=== PATIENT | female | born 1985 | race Caucasian/White ===

== ENCOUNTER 2016-09-27 17:03 | Emergency (ER) | payer OTHER ==
[2016-09-27 19:17] VITALS: BP 123/74
--- NOTE | 2016-09-27 19:29 | UC ---
Throat Pain/Nasal [place] HPI - HPI Summary HPI Summary: 31 yo female with a 2 day hx of right earache/sore throat and sinus congestion/ pressure no cp or sob no n/v/d - History of Current Complaint Chief Complaint: UCGeneralIllness Stated Complaint: SINUS COMPLAINT Time Seen by Provider: 09/27/16 19:05 Hx Obtained From: Patient Hx Last Menstrual Period: 09/24/16 Onset/Duration: Gradual Onset, Lasting Days Severity: Mild Pain Intensity: 4 Pain Scale Used: 0-10 Numeric Cough: None Associated Signs & Symptoms: Positive: Sinus Discomfort, Nasal Discharge - Allergies/Home Medications Allergies/Adverse Reactions: Allergies Allergy/AdvReac Type Severity Reaction Status Date / Time Amoxicillin Allergy Palpitation Verified 09/27/16 19:04 s Clindamycin Allergy Vomiting Verified 09/27/16 19:04 Erythromycin Allergy Palpitation Verified 09/27/16 19:04 s Penicillins [PCN] Allergy Unknown Verified 09/27/16 19:04 Reaction Details Home Medications: Home Medications diPHENhydraMINE PO* [Benadryl PO*] 25 mg PO BEDTIME PRN 09/27/16 [History Confirmed 09/27/16] PMH/Surg Hx/FS Hx/Imm Hx Previously Healthy: Yes - Surgical History Surgical History: Yes Surgery Procedure, Year, and Place: right pinky - Family History Known Family History: Positive: Hypertension, Diabetes - Social History Alcohol Use: Rare Substance Use Type: None Smoking Status (MU): Never Smoked Tobacco Amount Used/How Often: ~ 1/2 ppd Length of Time of Smoking/Using Tobacco: started ~ age 17 When Did the Patient Quit Smoking/Using Tobacco: quit ~ November 2014 Review of Systems Constitutional: Negative Skin: Negative Eyes: Negative ENT: Sore Throat, Ear Ache, Nasal Discharge Respiratory: Negative Cardiovascular: Negative Gastrointestinal: Negative Genitourinary: Negative Motor: Negative Neurovascular: Negative Musculoskeletal: Negative Neurological: Negative Psychological: Negative All Other Systems Reviewed And Are Negative: Yes Physical Exam Triage Information Reviewed: Yes Appearance: Well-Appearing, No Pain Distress, Well-Nourished Vital Signs: Initial Vital Signs Temp 98.6 F 09/27/16 19:06 Pulse 81 09/27/16 19:06 Resp 16 09/27/16 19:06 BP 123/74 09/27/16 19:06 Pulse Ox 100 09/27/16 19:06 Vital Signs Reviewed: Yes Eyes: Positive: Conjunctiva Clear ENT: Positive: Hearing grossly normal, Pharynx normal, Nasal drainage, TMs normal, Tonsillar swelling, Tonsillar exudate, Other: - tender both max sinuses. Negative: Pharyngeal erythema, Nasal congestion Dental: Negative: Gross Decay/Caries @, Dental Fracture @, Abscess @ Neck: Positive: Supple, Nontender, Enlarged Nodes @ - ant cervical Respiratory: Positive: Lungs clear, Normal breath sounds, No respiratory distress Cardiovascular: Positive: RRR, No Murmur Musculoskeletal: Positive: Strength Intact, ROM Intact, No Edema Neurological Exam: Normal Neurological: Positive: Alert Psychological Exam: Normal Skin: Negative: rashes, breakdown Throat Pain/Nasal Course/Dx - Differential Dx/Diagnosis Provider Diagnoses: acute exudative tonsillitis. ?sinusitis Discharge - Discharge Plan Condition: Stable Disposition: HOME Prescriptions: Cefuroxime Axetil [Ceftin 250 MG] 250 mg PO BID #20 tab Patient Education Materials: Sinusitis (ED), Tonsillitis (ED) Forms: *Work Release Referrals: No Primary Care Phys,NOPCP [Primary Care Provider] - Additional Instructions: rest fluids tylenol or advil if needed
== END 2016-09-27 19:35 | disposition home or self-care (01) ==
LOC: UCCORT 17:03
DX: J03.90 Acute tonsillitis, unspecified (principal); R09.81 Nasal congestion; H92.01 Otalgia, right ear; Z88.1 Allergy status to other antibiotic agents; Z88.0 Allergy status to penicillin; Z87.891 Personal history of nicotine dependence
CPT/HCPCS: 99212; G0463

== ENCOUNTER 2016-11-04 13:10 | Emergency (ER) | payer SELFPAY ==
[2016-11-04 13:26] VITALS: BP 112/71
--- NOTE | 2016-11-04 14:29 | RAD ---
Indication: Right foot injury. 3 views of the foot demonstrates no fracture. No other bone or joint abnormality is identified. IMPRESSION: No fracture of the right foot is noted.
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
== END 2016-11-04 15:12 | disposition home or self-care (01) ==
LOC: UCCORT 13:10
DX: S97.81XA Crushing injury of right foot, initial encounter (principal); S90.31XA Contusion of right foot, initial encounter; W20.8XXA Other cause of strike by thrown, projected or falling object, initial encounter; Y93.89 Activity, other specified; Y92.9 Unspecified place or not applicable; Y99.0 Civilian activity done for income or pay; Z88.1 Allergy status to other antibiotic agents; Z88.0 Allergy status to penicillin; Z87.891 Personal history of nicotine dependence
CPT/HCPCS: 99211; G0463

== ENCOUNTER 2017-12-31 16:56 | Emergency (ER) | payer OTHER ==
[2017-12-31 17:25] VITALS: BP 112/71
[2017-12-31] MEDS ORDERED: Tetan/Diph/Pertus SYR(Tdap)* 0.5 ML SYR(BOOSTRIX) use SYR IM ONE (17:43)
--- NOTE | 2017-12-31 17:47 | UC ---
Skin Complaint HPI - HPI Summary HPI Summary: The pt presents with . on sat, pt was in garden. Pt noted a tick to left inner thigh. Pt removed by making a circular motion around tick with soap. Pt states tick removed intact. Pt with erythema surrounding the attached site. Pt concerned for lymes. Pt denies fever, chills. no analgesia taken. Pt states slight itching at the site. Pt unknown last tetanus No possibility of pt's medications reviewed this visit - History of Current Complaint Chief Complaint: UCSkin Time Seen by Provider: 12/31/17 17:18 Stated Complaint: TICK BITE Hx Obtained From: Patient Hx Last Menstrual Period: 12/12/17 Onset/Duration: Gradual Onset Skin Exposure Onset/Duration: Days Ago Onset Severity: Mild Current Severity: Moderate Pain Intensity: 7 Pain Scale Used: 0-10 Numeric Location: Discrete - Allergy/Home Medications Allergies/Adverse Reactions: Allergies Allergy/AdvReac Type Severity Reaction Status Date / Time amoxicillin Allergy Palpitation Verified 12/31/17 17:19 s clindamycin Allergy Vomiting Verified 12/31/17 17:19 erythromycin base Allergy Palpitation Verified 12/31/17 17:19 s Penicillins Allergy Unknown Verified 12/31/17 17:19 Reaction Details Review of Systems Constitutional: Negative Skin: Rash All Other Systems Reviewed And Are Negative: Yes PMH/Surg Hx/FS Hx/Imm Hx Previously Healthy: Yes - Surgical History Surgical History: Yes Surgery Procedure, Year, and Place: right pinky - Family History Known Family History: Positive: None, Hypertension, Diabetes - Social History Occupation: Employed Full-time Lives: With Family Alcohol Use: Rare Substance Use Type: None Smoking Status (MU): Former Smoker Amount Used/How Often: ~ 1/2 ppd Length of Time of Smoking/Using Tobacco: started ~ age 17 When Did the Patient Quit Smoking/Using Tobacco: quit ~ November 2014 Physical Exam Triage Information Reviewed: Yes Completion Of Physical Exam Limited Due To: Altered Mental Status Appearance: Well-Appearing, No Pain Distress, Well-Nourished Vital Signs: Initial Vital Signs Temp 99.2 F 12/31/17 17:19 Pulse 88 12/31/17 17:19 Resp 14 12/31/17 17:19 BP 112/71 12/31/17 17:19 Pulse Ox 98 12/31/17 17:19 Vital Signs Reviewed: Yes Eye Exam: Normal ENT: Positive: Hearing grossly normal Dental Exam: Normal Neck: Positive: Supple Respiratory: Positive: No respiratory distress, No accessory muscle use Cardiovascular: Positive: Brisk Capillary Refill Musculoskeletal Exam: Normal Musculoskeletal: Positive: Strength Intact, Other: - ambulatory without difficultuy or weakness Neurological Exam: Normal Neurological: Positive: Alert, Muscle Tone Normal Psychological Exam: Normal Psychological: Positive: Normal Response To Family Skin: Positive: Other - left medial thigh -pt with 2mm wound from removal of tick. Pt with circumferential erythema, flat, warm no induration,fluctuance no drainage, odor mild discomfort with palpation Course/Dx - Course Course Of Treatment: Pt removed a tick from left inner thigh. Pt with circumferential erythema with surrounding puncture wound from tick removal. Suspect local reaction - no concern for cellulitis. Will update tdap. Doxy x 1 dose - d/w pt and CD recommendation. reviewed wound care. heat. steroid ointment. return precautions. pt without PCP - referral given. pt comfortable and in agreement with plan - Diagnoses Provider Diagnoses: tdap booster. tick bite - local reaction Discharge - Sign-Out/Discharge Documenting (check all that apply): Discharge/Admit/Transfer - Discharge Plan Condition: Stable Disposition: HOME Prescriptions: Betamethasone Dip 0.05% ON(NF) [Betamethasone Dipr 0.05% OINT(NF)] 1 applic .SEE ORDER BID #1 applic DOXYcycline CAP(*) [DOXYcycline 100MG CAP(*)] 200 mg PO DAILY #2 cap Patient Education Materials: Diphtheria/Acellular Pertussis/Tetanus Booster Vaccine (By injection), Tick Bite (ED) Referrals: [facility] [place] [facility] [Outside] No Primary Care Phys,NOPCP [Primary Care Provider] - Additional Instructions: - You were given a tetanus vaccination today. Your arm will likely be sore over the next 1-2 days. This is normal. - Okay to take tylenol every 6 hours for pain - The provider that evaluated you today thinks the reddness is a local reaction to the tick. The doctor does not think there is infection to the area. This is not the rash associated with lyme disease. The following are recommendations for your: - okay to apply warm soaks to your wound 2-3 times a day - apply steroid ointment 2 times a day - you have been given the 1 time dose of antibiotics to prevent lyme disease - monitor your wound carefully for the development of skin infection - this includes increased reddness, red streaking up your leg toward your groin, drainage, fever or ANY other concerns - if you have any concerns - contact your doctor or return - Billing Disposition and Condition Condition: STABLE Disposition: HOME
== END 2017-12-31 18:00 | disposition home or self-care (01) ==
LOC: UCCORT 16:56
DX: S70.362A Insect bite (nonvenomous), left thigh, initial encounter (principal); W57.XXXA Bitten or stung by nonvenomous insect and other nonvenomous arthropods, initial encounter; Y92.9 Unspecified place or not applicable; Z87.891 Personal history of nicotine dependence
CPT/HCPCS: 90471; 90715; 99212; G0463

== ENCOUNTER 2018-05-18 12:10 | Emergency (ER) | payer OTHER ==
[2018-05-18 12:52] VITALS: BP 102/67
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
== END 2018-05-18 14:20 | disposition home or self-care (01) ==
LOC: UCCORT 12:10
DX: L08.9 Local infection of the skin and subcutaneous tissue, unspecified (principal); B95.62 Methicillin resistant Staphylococcus aureus infection as the cause of diseases classified elsewhere; B96.89 Other specified bacterial agents as the cause of diseases classified elsewhere; Z88.0 Allergy status to penicillin; Z88.1 Allergy status to other antibiotic agents; F17.210 Nicotine dependence, cigarettes, uncomplicated
CPT/HCPCS: 87070; 87077; 87186; 87205; 87640; 87641; 99212; G0463

== ENCOUNTER 2019-05-10 14:13 | Emergency (ER) | payer OTHER ==
[2019-05-10 15:09] VITALS: BP 109/70
--- NOTE | 2019-05-10 15:24 | UC ---
Skin Complaint HPI - HPI Summary HPI Summary: Pt presents with c/o sudden onset of painful "lump" under left upper arm lateral aspect. Pt states she has a hx of frequent MRSA infections. Pt denies drainage, red streaking, fever, or chills. Pt's daughter was dx with MRSA infection last week - History of Current Complaint Chief Complaint: UCSkin Time Seen by Provider: 05/10/19 15:02 Stated Complaint: SKIN COMPLAINT Hx Obtained From: Patient Hx Last Menstrual Period: 04/13/19 ?: No Onset/Duration: Sudden Onset Skin Exposure Onset/Duration: Days Ago Timing: Constant Onset Severity: Moderate Current Severity: Moderate Pain Intensity: 0 Location: Discrete Character: Swelling, Pain, Redness Aggravating Factor(s): Touch Alleviating Factor(s): Nothing Associated Signs & Symptoms: Positive: Tenderness - Allergy/Home Medications Allergies/Adverse Reactions: Allergies Allergy/AdvReac Type Severity Reaction Status Date / Time amoxicillin Allergy Palpitation Verified 05/10/19 15:10 s clindamycin Allergy Vomiting Verified 05/10/19 15:10 erythromycin base Allergy Palpitation Verified 05/10/19 15:10 s Penicillins Allergy Unknown Verified 05/10/19 15:10 Reaction Details PMH/Surg Hx/FS Hx/Imm Hx Previously Healthy: Yes - hx of mrsa - Surgical History Surgical History: Yes Surgery Procedure, Year, and Place: Right Fifth Finger Tendon Repair, ~2012 - Family History Known Family History: Positive: Hypertension, Diabetes - Social History Occupation: Employed Full-time Lives: With Family Alcohol Use: Rare Substance Use Type: None Smoking Status (MU): Former Smoker Amount Used/How Often: ~ 1/2 ppd Length of Time of Smoking/Using Tobacco: 1/2 PPD x 13 Years Have You Smoked in the Last Year: No When Did the Patient Quit Smoking/Using Tobacco: 2014 - Immunization History Most Recent Tetanus Shot: 12/31/17 Vaccination Up to Date: Yes Review of Systems All Other Systems Reviewed And Are Negative: Yes Constitutional: Positive: Negative Skin: Positive: Other - erythema, firm, non flucuant lump Eyes: Positive: Negative ENT: Positive: Negative Respiratory: Positive: Negative Cardiovascular: Positive: Negative Gastrointestinal: Positive: Negative Genitourinary: Positive: Negative Motor: Positive: Negative Neurovascular: Positive: Negative Musculoskeletal: Positive: Negative Neurological: Positive: Negative Psychological: Positive: Negative Is Patient Immunocompromised?: No Physical Exam Triage Information Reviewed: Yes Appearance: Well-Appearing Vital Signs: Initial Vital Signs Temp 99.4 F 05/10/19 15:03 Pulse 91 05/10/19 15:03 Resp 18 05/10/19 15:03 BP 109/70 05/10/19 15:03 Pulse Ox 100 05/10/19 15:03 Vital Signs Reviewed: Yes Eye Exam: Normal ENT Exam: Normal ENT: Positive: Hearing grossly normal Dental Exam: Normal Respiratory: Positive: No respiratory distress Musculoskeletal Exam: Normal Neurological Exam: Normal Psychological Exam: Normal Skin Exam: Other - large marble size firm lump left lateral posterior upper arm no drainage, Course/Dx - Course Course Of Treatment: Unable to drain wound with pressure - Differential Diagnoses - Skin Complaint Differential Diagnoses: Abscess, MRSA - Diagnoses Provider Diagnosis: Abscess Discharge ED - Sign-Out/Discharge Documenting (check all that apply): Patient Departure All imaging exams completed and their final reports reviewed: No Studies - Discharge Plan Condition: Stable Disposition: HOME Prescriptions: Mupirocin 2% OINT* [Bactroban 2 % Oint*] 1 applic TOPICAL BEDTIME #1 tube Sulfamethox/Trimethoprim DS* [Bactrim DS 800/160 TAB*] 1 tab PO Q12H #20 tab Patient Education Materials: Abscess (ED) Referrals: [facility] [place] [facility] [Outside] - If Needed No Primary Care Phys,NOPCP [Primary Care Provider] - - Billing Disposition and Condition Condition: STABLE Disposition: Home
== END 2019-05-10 15:32 | disposition home or self-care (01) ==
LOC: UCCORT 14:13
DX: L02.414 Cutaneous abscess of left upper limb (principal); Z88.0 Allergy status to penicillin; Z88.1 Allergy status to other antibiotic agents; Z87.891 Personal history of nicotine dependence; Z86.14 Personal history of Methicillin resistant Staphylococcus aureus infection
CPT/HCPCS: 99212; G0463

== ENCOUNTER 2021-11-10 09:00 | Inpatient (IN) ==
[2021-11-10 09:45] LABS: ABS Basophils 0.1 10^3/ul (0-0.2); ABS Eosinophils 0.1 10^3/ul (0-0.6); ABS Monocytes 0.5 10^3/ul (0-0.8); ABS Neutrophils 3.5 10^3/ul (1.5-7.7); Eosinophil % 1.3 %; Hematocrit 42 % (35-47); Hemoglobin 14.8 g/dL (12.0-16.0); Lymphocyte % 32.7 %; Mean Corpuscular HGB Conc 35 g/dL (31-36); Mean Corpuscular Hemoglobin 30 pg (27-31); Mean Corpuscular Volume 84 fL (80-97); Mean Platelet Volume 6.9 fL (7.4-10.4); Nucleated Red Blood Cells % 0.1; Platelet Count 300 10^3/uL (150-450); Red Blood Count 5.02 10^6 /uL (3.70-4.87); Red Cell Distribution Width 13 % (10-15); White Blood Count 6.2 10^3/uL (3.5-10.8)
[2021-11-10 09:50] LABS: INR 1.14 (0.86-1.15)
[2021-11-10 10:33] LABS: Albumin 4.3 g/dL (3.2-5.2); Albumin/Globulin Ratio 1.7 (1-3); Calcium 9.2 mg/dL (8.6-10.3); Globulin 2.5 g/dL (2-4); Potassium 4.2 mmol/L (3.5-5.0); Total Bilirubin 0.6 mg/dL (0.2-1.0); Total Protein 6.8 g/dL (6.4-8.9)
[2021-11-10 11:16] LABS: C Reactive Protein 3.63 mg/L (<8.01)
[2021-11-10 11:31] LABS: TSH Ultra Thyroid Stim Horm 0.93 mcIU/mL (0.34-5.60)
[2021-11-10 12:37] LABS: Erythrocyte Sed Rate 10 mm/Hr (0-19)
[2021-11-10] MEDS ORDERED: Gadoteridol (CONTRAST) 279.3 MG/ML 10 ML IV ONE (13:16)
[2021-11-10] MEDS ORDERED: Cyanocobalamin INJ 1,000 MCG/ML VIAL 1 ML VIAL IM ONE (13:39)
[2021-11-10] MEDS ORDERED: Immune Globulin IV Order (CPOE ENTRY PROTOCOL) IV SCH (15:00)
[2021-11-10] MEDS ORDERED: Lidocaine 1% MPF 5 ML VIAL ONE (15:39)
[2021-11-10] MEDS ORDERED: Lidocaine 1% VIAL 10 MG/ML VIAL INJ ONE (16:02)
[2021-11-10] MEDS ORDERED: diPHENhydraMINE 25 mg TAB PO ONE (16:03)
[2021-11-10 16:18] LABS: Body Fluid Source Cerebral Spinal
[2021-11-10 16:28] LABS: CSF Tube # 4
[2021-11-10 16:36] LABS: CSF Glucose 50 mg/dL (40-70)
[2021-11-10 17:06] LABS: Body Fluid Appearance Clear; Body Fluid Color Pink
[2021-11-10 17:25] LABS: Body Fluid Mono 5 %; Body Fluid Total Cells Counted 200
[2021-11-10 17:27] LABS: Body Fluid WBC 70 /mcL
[2021-11-10] MEDS ORDERED: Immune Glob 10%-20GM PRIVIGEN 20 GM, Immune Glob 10%-10GM PRIVIGEN 10 GM in Premix IV 0 ML IV SCH (21:00)
[2021-11-10] MEDS: Enoxaparin 40 MG/0.4 ML SYR SUBCUT SCH (21:32)
[2021-11-11 06:33] LABS: ABS Eosinophils 0.1 10^3/ul (0-0.6); ABS Lymphocytes 1.8 10^3/ul (1.0-4.8); ABS Monocytes 0.8 10^3/ul (0-0.8); ABS Neutrophils 4.7 10^3/ul (1.5-7.7); Eosinophil % 1.1 %; Hematocrit 38 % (35-47); Lymphocyte % 24.3 %; Mean Corpuscular HGB Conc 35 g/dL (31-36); Mean Corpuscular Hemoglobin 30 pg (27-31); Mean Corpuscular Volume 86 fL (80-97); Mean Platelet Volume 7.1 fL (7.4-10.4); Platelet Count 260 10^3/uL (150-450); Red Blood Count 4.42 10^6 /uL (3.70-4.87); Red Cell Distribution Width 13 % (10-15); White Blood Count 7.4 10^3/uL (3.5-10.8)
[2021-11-11 07:12] LABS: Calcium 8.6 mg/dL (8.6-10.3); Magnesium 1.8 mg/dL (1.9-2.7); Potassium 4.1 mmol/L (3.5-5.0); eGFR CKD-EPI 117.7 (>60)
[2021-11-11] MEDS ORDERED: diPHENhydraMINE 25 mg TAB PO ONE (12:57)
[2021-11-11] MEDS ORDERED: Immune Glob 10%-20GM PRIVIGEN 20 GM, Immune Glob 10%-10GM PRIVIGEN 10 GM in Premix IV 0 ML IV ONE (15:00)
[2021-11-11 18:03] LABS: Copper Level 1.29 mcg/mL (0.75-1.45); Zinc 0.89 mcg/mL (0.66-1.10)
[2021-11-11] MEDS: Enoxaparin 40 MG/0.4 ML SYR SUBCUT SCH (22:31)
[2021-11-12 06:32] LABS: ABS Basophils 0.1 10^3/ul (0-0.2); ABS Eosinophils 0.1 10^3/ul (0-0.6); ABS Lymphocytes 1.9 10^3/ul (1.0-4.8); ABS Monocytes 0.6 10^3/ul (0-0.8); ABS Neutrophils 2.7 10^3/ul (1.5-7.7); Eosinophil % 2.5 %; Hematocrit 37 % (35-47); Hemoglobin 12.8 g/dL (12.0-16.0); Lymphocyte % 35.9 %; Mean Corpuscular HGB Conc 34 g/dL (31-36); Mean Corpuscular Hemoglobin 29 pg (27-31); Mean Corpuscular Volume 85 fL (80-97); Mean Platelet Volume 7.1 fL (7.4-10.4); Nucleated Red Blood Cells % 0.2; Platelet Count 259 10^3/uL (150-450); Red Blood Count 4.39 10^6 /uL (3.70-4.87); Red Cell Distribution Width 13 % (10-15); White Blood Count 5.4 10^3/uL (3.5-10.8)
[2021-11-12 07:08] LABS: Calcium 8.6 mg/dL (8.6-10.3); Potassium 4.3 mmol/L (3.5-5.0)
[2021-11-12] MEDS ORDERED: diPHENhydraMINE 25 mg TAB PO ONE (10:33)
[2021-11-12] MEDS ORDERED: Immune Glob 10%-20GM PRIVIGEN 20 GM, Immune Glob 10%-10GM PRIVIGEN 10 GM in Premix IV 0 ML IV ONE (12:00)
[2021-11-12 13:05] LABS: HIV 4th Generation Nonreactive (Nonreactive)
[2021-11-12] MEDS: Enoxaparin 40 MG/0.4 ML SYR SUBCUT SCH (21:08)
[2021-11-13 05:08] LABS: Hematocrit 38 % (35-47); Hemoglobin 13.3 g/dL (12.0-16.0); Mean Corpuscular HGB Conc 35 g/dL (31-36); Mean Corpuscular Hemoglobin 29 pg (27-31); Mean Corpuscular Volume 84 fL (80-97); Mean Platelet Volume 7.1 fL (7.4-10.4); Platelet Count 264 10^3/uL (150-450); Red Blood Count 4.55 10^6 /uL (3.70-4.87); Red Cell Distribution Width 13 % (10-15); White Blood Count 5.9 10^3/uL (3.5-10.8)
[2021-11-13 06:00] LABS: Calcium 8.6 mg/dL (8.6-10.3); Magnesium 1.8 mg/dL (1.9-2.7); Potassium 4.3 mmol/L (3.5-5.0); eGFR CKD-EPI 117.7 (>60)
[2021-11-13] MEDS: Immune Glob 10%-20GM PRIVIGEN 20 GM, Immune Glob 10%-10GM PRIVIGEN 10 GM in Premix IV 0 ML IV SCH (10:09)
[2021-11-13 17:15] LABS: B. garinii/B. afzellii PCR Negative (Negative); Lyme Disease Source CSF
[2021-11-13] MEDS: Enoxaparin 40 MG/0.4 ML SYR SUBCUT SCH (22:08)
[2021-11-14 06:00] LABS: ABS Eosinophils 0.1 10^3/ul (0-0.6); ABS Lymphocytes 1.8 10^3/ul (1.0-4.8); ABS Monocytes 0.6 10^3/ul (0-0.8); ABS Neutrophils 3.9 10^3/ul (1.5-7.7); Eosinophil % 1.3 %; Hematocrit 38 % (35-47); Hemoglobin 13.2 g/dL (12.0-16.0); Lymphocyte % 28.3 %; Mean Corpuscular HGB Conc 35 g/dL (31-36); Mean Corpuscular Hemoglobin 30 pg (27-31); Mean Corpuscular Volume 84 fL (80-97); Nucleated Red Blood Cells % 0.1; Platelet Count 263 10^3/uL (150-450); Red Blood Count 4.47 10^6 /uL (3.70-4.87); Red Cell Distribution Width 13 % (10-15); White Blood Count 6.4 10^3/uL (3.5-10.8)
[2021-11-14 07:43] LABS: Calcium 8.7 mg/dL (8.6-10.3); Potassium 4.3 mmol/L (3.5-5.0)
[2021-11-14 07:49] LABS: eGFR CKD-EPI 120.5 (>60)
[2021-11-14] MEDS: Immune Glob 10%-20GM PRIVIGEN 20 GM, Immune Glob 10%-10GM PRIVIGEN 10 GM in Premix IV 0 ML IV SCH (09:16)
[2021-11-14 12:09] VITALS: BP 118/65
[2021-11-14 13:25] LABS: CSF VDRL Negative (Negative)
[2021-11-14 17:59] LABS: Albumin, CSF 86.2 mg/dL (<=27.0); Albumin, S 4100 mg/dL; IgG Index, CSF 0.64 (<=0.85); IgG, CSF 12.1 mg/dL (<=8.1); IgG, S 914 mg/dL (767 - 1590); IgG/Albumin, CSF 0.14 (<=0.21); IgG/Albumin, S 0.22 (<=0.40); Synthesis Rate, CSF 17.41 mg/24 h (<=12)
[2021-11-14 21:56] LABS: Albumin 3.5 g/dL (3.4-4.7); Albumin/Globulin Ratio 1.01; Gamma Globulin 1.1 g/dL (0.6-1.6); Total Protein(PEP) 6.9 g/dL (6.3 - 7.9)
== END 2021-11-14 13:10 | disposition home health service (06) | DRG 137 ==
LOC: ED 09:00 → EDHOLD 12:14 → SUATTDRO 12:14 → EDHOLD 16:30 → MED 17:18
PROVIDERS: ADMIT Internal Medicine; ATTEND Student in an Organized Health Care Education/Training Program

== ENCOUNTER 2021-12-06 14:24 | Inpatient (IN) ==
[2021-12-06 19:39] LABS: ABS Eosinophils 0.1 10^3/ul (0-0.6); ABS Monocytes 0.6 10^3/ul (0-0.8); ABS Neutrophils 4.7 10^3/ul (1.5-7.7); Eosinophil % 1.3 %; Hematocrit 46 % (35-47); Lymphocyte % 35.3 %; Mean Corpuscular HGB Conc 35 g/dL (31-36); Mean Corpuscular Hemoglobin 29 pg (27-31); Mean Corpuscular Volume 84 fL (80-97); Mean Platelet Volume 7.1 fL (7.4-10.4); Platelet Count 334 10^3/uL (150-450); Red Blood Count 5.49 10^6 /uL (3.70-4.87); Red Cell Distribution Width 13 % (10-15); White Blood Count 8.4 10^3/uL (3.5-10.8)
[2021-12-06 20:19] LABS: ALT 30 U/L (7-52); AST 26 U/L (13-39); Albumin 4.2 g/dL (3.2-5.2); Albumin/Globulin Ratio 1.1 (1-3); Alkaline Phosphatase 55 U/L (35-149); Anion Gap 9 mmol/L (2-11); Blood Urea Nitrogen 11 mg/dL (6-24); CO2 Carbon Dioxide 28 mmol/L (22-32); Calcium 9.9 mg/dL (8.6-10.3); Chloride 103 mmol/L (101-111); Globulin 3.7 g/dL (2-4); Glucose 110 mg/dL (70-100); Potassium 3.9 mmol/L (3.5-5.0); Rheumatoid Factor < 10 IU/mL (<15); Sodium 140 mmol/L (135-145); Total Protein 7.9 g/dL (6.4-8.9); eGFR CKD-EPI 118.1 (>60)
[2021-12-06] MEDS ORDERED: Gadoteridol (CONTRAST) 279.3 MG/ML 10 ML IV ONE (20:44)
[2021-12-06 22:03] LABS: Erythrocyte Sed Rate 38 mm/Hr (0-19)
[2021-12-06] MEDS ORDERED: Lidocaine 1% VIAL 10 MG/ML VIAL ONE (22:44)
[2021-12-06] MEDS ORDERED: Ondansetron 4 mg VIAL 2 MG/ML 2 ml VIAL IV PRN (23:43)
[2021-12-07 00:32] LABS: Body Fluid Source Cerebral Spinal
[2021-12-07 00:46] LABS: CSF Glucose 66 mg/dL (40-70)
[2021-12-07 01:22] LABS: CSF Tube # 4
[2021-12-07 01:24] LABS: Body Fluid Appearance Clear; Body Fluid Color Colorless
[2021-12-07 02:17] LABS: Body Fluid Mono 6 %; Body Fluid Total Cells Counted 200
[2021-12-07 02:27] LABS: Body Fluid WBC 49 /mcL
[2021-12-07 03:53] LABS: Urine Appearance Cloudy; Urine Bilirubin Negative (Negative); Urine Blood Negative (Negative); Urine Color Yellow; Urine Glucose Negative (Negative); Urine Ketones Negative (Negative); Urine Nitrite Negative (Negative); Urine Protein Negative (Negative); Urine Specific Gravity 1.021 (1.002-1.030); Urine Urobilinogen Negative (Negative)
[2021-12-07 04:15] LABS: Urine Bacteria Absent (Absent); Urine Granular Casts Present (Absent); Urine Red Blood Cell Trace(0-2/hpf) (Absent); Urine Squamous Epithelial Cell Present (Absent); Urine White Blood Cell 1+(6-10/hpf) (Absent)
[2021-12-07 07:03] LABS: ABS Eosinophils 0.1 10^3/ul (0-0.6); ABS Lymphocytes 2.7 10^3/ul (1.0-4.8); ABS Monocytes 0.5 10^3/ul (0-0.8); ABS Neutrophils 4.9 10^3/ul (1.5-7.7); Eosinophil % 0.6 %; Hematocrit 39 % (35-47); Mean Corpuscular HGB Conc 36 g/dL (31-36); Mean Corpuscular Hemoglobin 30 pg (27-31); Mean Corpuscular Volume 84 fL (80-97); Mean Platelet Volume 7.3 fL (7.4-10.4); Platelet Count 286 10^3/uL (150-450); Red Blood Count 4.65 10^6 /uL (3.70-4.87); Red Cell Distribution Width 13 % (10-15); White Blood Count 8.2 10^3/uL (3.5-10.8)
[2021-12-07 07:13] LABS: Albumin 3.5 g/dL (3.2-5.2); Albumin/Globulin Ratio 1.1 (1-3); Calcium 9.4 mg/dL (8.6-10.3); Globulin 3.2 g/dL (2-4); Potassium 4.1 mmol/L (3.5-5.0); Total Bilirubin 0.6 mg/dL (0.2-1.0); Total Protein 6.7 g/dL (6.4-8.9); eGFR CKD-EPI 122.5 (>60)
[2021-12-07] MEDS ORDERED: PRIVIGEN IV ONE (16:00)
[2021-12-07] MEDS ORDERED: IMMUNE GLOB IV ONE (16:00)
[2021-12-07] MEDS: diPHENhydraMINE 25 mg TAB PO SCH (17:02)
[2021-12-08 06:43] LABS: Calcium 8.8 mg/dL (8.6-10.3); Magnesium 1.7 mg/dL (1.9-2.7); Potassium 3.9 mmol/L (3.5-5.0)
[2021-12-08] MEDS ORDERED: Magnesium Sulfate 2 gm BAG 2 GM/50 ML BAG IV ONE (08:00)
[2021-12-08] MEDS ORDERED: Magnesium Sulfate 1 GM IV 1 GM/100 ML BAG IV ONE (10:00)
[2021-12-08 11:33] LABS: HIV 4th Generation Nonreactive (Nonreactive)
[2021-12-08] MEDS: diPHENhydraMINE 25 mg TAB PO SCH (15:41)
[2021-12-08] MEDS ORDERED: IMMUNE GLOB IV ONE (16:00)
[2021-12-08] MEDS ORDERED: PRIVIGEN IV ONE (16:00)
[2021-12-08 17:30] LABS: HSV 1 PCR, CSF Negative (Negative); HSV 2 PCR, CSF Negative (Negative)
[2021-12-09] MEDS ORDERED: PRIVIGEN IV ONE (13:00)
[2021-12-09] MEDS ORDERED: IMMUNE GLOB IV ONE (13:00)
[2021-12-09 16:35] VITALS: BP 126/72
== END 2021-12-09 19:10 | disposition home or self-care (01) | DRG 43 ==
LOC: ED 14:24 → EDHOLD 23:16 → SUATTDRO 23:16 → EDHOLD 12-07 02:46 → SSU 12-07 03:13
PROVIDERS: ADMIT Internal Medicine; ATTEND Internal Medicine